=== PATIENT | female | born 1960 | race Caucasian/White ===

== ENCOUNTER → 2019-09-05 | Outpatient (CLI) | payer OTHER ==
--- NOTE | 2019-09-05 13:07 | RAD ---
Examination: ANKLE LEFT 2V History: Ankle fracture. Osteoarthritis. Comparison/Correlation: None Findings: Frontal and lateral views of the left ankle were obtained. Ankle joint mortise is unremarkable. Lateral malleolar nondisplaced fracture which is old in appearance is noted. Deformity of the morphology is noted at the site of fracture. No suspicious soft tissue findings. Osteopenia may be present. Impression: Old lateral malleolar fracture deformity. No displacement. Electronically signed by: Cristhian Frye MD (09/05/2019 1:04 PM) [facility]
--- NOTE | 2019-09-05 17:57 | RAD ---
EXAM: PA and lateral views right hand DATE: 09/05/2019 12:00 AM INDICATION: Right hand pain COMPARISON: No Prior FINDINGS/ IMPRESSION: Decreased bone mineral density. No evidence of acute fracture or dislocation. Multifocal degenerative changes are seen most dominant at the scattered IP joints and thumb CMC joint. Electronically signed by: Javon Gray MD (09/05/2019 5:54 PM) [id number]
--- NOTE | 2019-09-06 11:05 | RAD ---
2 views lumbar spine without comparison for low back pain, disability determination. FINDINGS: There is no fracture or acute osseous or alignment abnormality of the lumbar spine. There is facet arthrosis at L4-5 and L5-S1, and there is degenerative disc disease at L2-3 and likely to a lesser extent L4-5 and L5-S1. Atherosclerosis is seen involving the abdominal aorta. IMPRESSION: 1. No fracture or acute osseous or alignment abnormality. 2. Multilevel degenerative changes. Electronically signed by: iMnh Wiseman MD (09/06/2019 11:03 AM) [id number]
== END | disposition home or self-care (01) ==
LOC: RAD 10:04
PROVIDERS: ATTEND Family Medicine Adolescent Medicine
DX: Z02.71 Encounter for disability determination (principal); S82.65XA Nondisplaced fracture of lateral malleolus of left fibula, initial encounter for closed fracture; M19.041 Primary osteoarthritis, right hand; M19.072 Primary osteoarthritis, left ankle and foot; X58.XXXA Exposure to other specified factors, initial encounter; Y93.89 Activity, other specified; Y92.89 Other specified places as the place of occurrence of the external cause; Y99.8 Other external cause status
CPT/HCPCS: 72100; 73120; 73600